=== PATIENT | male | born 1985 | race Two or more races ===

== ENCOUNTER 2020-01-29 11:20 | Emergency (ER) | payer BC, OTHER ==
[~2020-01-29] VITALS: Ht 170.2 cm; Wt 65.0 kg
[2020-01-29 11:32] VITALS: BP 147/72
--- NOTE | 2020-01-29 11:37 | NUR ---
PA-C IS EVALUATING IN TRIAGE.
--- NOTE | 2020-01-29 11:38 | NUR ---
EKG IN TRIAGE.
[2020-01-29] MEDS ORDERED: KETOROLAC 30 MG/1 ML ONE (11:41)
--- NOTE | 2020-01-29 11:41 | NUR ---
PT IS WAITING IN TRIAGE TENT FOR CXR,INJ PRIOR TO D/C
--- NOTE | 2020-01-29 11:47 | NUR ---
MEDICATED IN TRIAGE. NO SCANNER AVAILABLE, 5 RIGHTS COMPLETED
[2020-01-29] MEDS ORDERED: KETOROLAC 30 MG/1 ML IM ONE (12:00)
== END 2020-01-29 12:34 | disposition home or self-care (01) ==
LOC: ED 11:31
DX: R07.89 Other chest pain (principal); B34.9 Viral infection, unspecified
CPT/HCPCS: 71045; 93005; 99283; J1885